=== PATIENT | female | born 1985 | race Hispanic/Latino ===

== ENCOUNTER 2017-10-27 09:15 | Emergency (ER) | payer OTHER ==
[~2017-10-27] VITALS: Ht 154.9 cm; Wt 112.9 kg
[~2017-10-27 09:15] MED LIST: LEVOTHYROXINE25 MCG PO; PANTOPRAZOLE SO20 M1 PO; ZITHROMAX250 M2 PO
--- NOTE | 2017-10-27 09:25 | ED NECK/BACK PAIN COMPLAINT ---
History of Present Illness General Chief Complaint: Low Back Pain/Injury Stated Complaint: LOW BACK PAIN Source: patient Exam Limitations: no limitations Vital Signs & Intake/Output Vital Signs & Intake/Output Vital Signs Date Time Temp Pulse Resp B/P B/P Pulse O2 O2 Flow FiO2 Mean Ox Delivery Rate 10/27 1153 98.8 85 16 126/79 99 Room Air 10/27 1042 Room Air 10/27 0919 98.3 88 18 131/79 98 Room Air Allergies Coded Allergies: epinephrine (UNKNOWN 10/27/17) Reconcile Medications Dicyclomine HCl 10 MG CAPSULE 1 CAP PO TID GI (Reported) Levothyroxine Sodium 25 MCG TABLET 1 TAB PO DAILY AC THYROID (Reported) Meloxicam 15 MG TABLET 1 TAB PO DAILY PAIN (Reported) Pantoprazole Sodium 20 MG TABLET.DR 1 TAB PO DAILY ACID REFLUX (Reported) Triage Note: 32 YO FEMALE TO TRIAGE C/O LOW BACK PAIN RADAITING DOWN BILATERAL LEGS SINCE YESTERDAY. STATES HX OF OA. STATES HAS BEEN SMOKING MARIJUANA FOR THE PAIN B/C SHE DOESNT LIKE TO TAKE MOTRIN/TYLENOL. Triage Nurses Notes Reviewed? yes Onset: Gradual Duration: day(s): Timing: recent history Quality/Severity: moderate Location: lumbar spine Radiation: buttocks Method of Injury: unknown LMP (ages 10-50): tubal ligation : No Patient currently breastfeeds: No HPI: Pt is a 32 yo obese F with an extensive PMH including chronic LBP, IBS, OA, ERIK, GERD, gastric ulcers, endometriosis, PCOS, hypothyroid, tubal ligation, who presents to the ED with a CC of increased intensity of lower back pain. Pt states she woke up with morning with new back pain in her lower back, with a feeling of tightness radiating to bilat buttocks and intermittent sharp pain radiating down her left leg. Pt states pain is exacerbated with certain ROM, especially bending forward. She has taken Ibuprofen with no relief, however, smoking marijuana alleviates the pain from 03/05 to 10/03. Pt denies fevers/chills , flank pain, vomiting, hematemesis, melena/hematochezia, dysuria, anorexia, numbness, urinary incontinence. She reports a longstanding hx of nausea and diarrhea/constipation. She denies any recent trauma or strenuous activities. She does report starting nightly CPAP 1 wk ago, for which she states she has had to change her sleeping position. Past History Travel History Traveled to [place] past 21 day No Medical History Any Pertinent Medical History? 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 No Review of Systems Review of Systems Constitutional: Reports: see HPI. Eyes: Denies: see HPI. Ears, Nose, Throat, Mouth: Denies: see HPI. Respiratory: Denies: see HPI. Cardiovascular: Denies: see HPI. Gastrointestinal/Abdominal: Denies: see HPI. Musculoskeletal: Reports: see HPI. Skin: Denies: see HPI. Neurological/Psychological: Reports: see HPI. All Other Systems: Reviewed and Negative Physical Exam Physical Exam General Appearance: no apparent distress, alert, awake, obese Head: atraumatic, normal appearance Eyes: Bilateral: normal appearance. Ears, Nose, Throat, Mouth: hearing grossly normal Neck: normal inspection, supple, full range of motion Respiratory: no respiratory distress Gastrointestinal: soft, non-tender, no organomegaly Back: decreased range of motion, Pt significantly tender to palpation of lumbar/ sacral spine, pain exacerbated with hip flexion/extension/twisting, no obvious deformities noted, no rashes noted. Extremities: normal range of motion Straight Leg Raising: Right: Negative. Left: Negative. Sensory: Medial Le: L4R, L4L. Top of Foot: 2: L5R, L5L. Sole of Foot: 2: SIR, LANA. DTR: Patellar: 2: L4 Right, L4 Left. Neurologic/Psych: awake, alert, oriented x 3, strength 5/5 equal bilateral lower extremities Skin: intact, normal color, warm/dry Core Measures CVA/TIA Diagnosis: No Progress Differential Diagnosis: cauda equina syn, herniated disc, myofascial strain, spinal cord inj, T/L spine injury Plan of Care: Patient's x-ray shows degenerative changes however no acute findings. Patient reports Tylenol and ibuprofen typically make her nauseous, she does not want any sedating medication. Patient also reports also relaxers have been unhelpful for her in the past. Patient declines pain medication. Patient to follow up with her primary care doctor for possible physical therapy and MRI. Patient also has appointments with rheumatology. The patient was given orthopedic referral for her low back pain. The patient ambulating here in the emergency Department without difficulty. No saddle anesthesia or urinary incontinence, low suspicion for cauda equina syndrome at this time. The patient agrees with the plan of care. Diagnostic Imaging: Viewed by Me: Radiology Read. Discussed w/RAD: Radiology Read. Radiology Impression: PATIENT: VERONICA MARTINES PRESENT AGE: 32 PATIENT ACCOUNT NO: [id number] : 83 LOCATION: [facility] ORDERING PHYSICIAN: Helen MARTINEZ SERVICE DATE: 10/27/17 EXAM TYPE: RAD - XRY-LUMBOSACRAL SPINE 4 VIEWS EXAMINATION: XR LUMBOSACRAL SPINE CLINICAL INFORMATION: Low back pain COMPARISON: None TECHNIQUE: 4 views of the lumbosacral spine were obtained. FINDINGS: There is anatomic alignment of the lumbar vertebral bodies and posterior elements. Vertebral body heights are maintained. No acute fracture is seen. Multilevel endplate osteophytes are present in the lumbar spine, most prominently at L1. There is mild disc space narrowing at L1-L2. The sacroiliac joints appear intact. IMPRESSION: No acute fracture identified. Mild disc space narrowing at L1-L2. Multilevel endplate osteophytes. DICTATED BY: Matthew Bran MD DATE/TIME DICTATED:10/27/171122 HOME VISIT[employer] START:OBDULIA DATE/TIME TRANSCRIBED:10/27/171122 CONFIDENTIAL, DO NOT COPY WITHOUT APPROPRIATE AUTHORIZATION. <Electronically signed in Other Vendor System> SIGNED BY: Matthew Bran MD 10/27/17 1130 Departure Departure Disposition: HOME OR SELF CARE Condition: Stable Clinical Impression Primary Impression: Back pain Qualifiers: Back pain location: low back pain Chronicity: acute Back pain laterality: midline Sciatica presence: without sciatica Qualified Code: M54.5 - Low back pain Referrals: Best PRIEST,Best (PCP/Family) Daniel PRIEST,Rafat Mckenzie Additional Instructions: For physical therapy please follow-up with your primary care doctor. Also keep your scheduled appointment with auto hauler. You were given a referral for an orthopedic doctor to consult given your low back pain. You may require an MRI in the future. Return to emergency Department with any worsening symptoms or concerns.. Please note that there might be incidental findings in your evaluation that are unrelated to the current emergency department visit. Please notify your primary care doctor about this emergency department visit in order to obtain and review all of the testing performed so that these incidental findings can be monitored as needed. If you had an x-ray performed, please understand that some fractures may not be seen on the initial set of x-rays. If your symptoms persist you might need a repeat set of x-rays to check for such a fracture. If you had a laceration evaluated, please understand that foreign bodies such as glass or wood may not be visible to the naked eye or on plain x-rays. If the wound becomes red, swollen, increasingly more painful or if there is any drainage from the wound, please have it reevaluated by a physician for the possibility of a retained foreign body. If you're unable to follow up as outlined in the discharge instructions please return to the emergency department. Thank you for choosing the [facility] Emergency Department for your care. It was a pleasure to serve you today. Departure Forms: Customer Survey General Discharge Information
[2017-10-27] MEDS ORDERED: DICYCLOMINE HCL10 M1 PO (10:05)
[2017-10-27] MEDS ORDERED: MELOXICAM15 M1 PO (10:05)
--- NOTE | 2017-10-27 11:30 | RADIOLOGY REPORT ---
EXAMINATION: XR LUMBOSACRAL SPINE CLINICAL INFORMATION: Low back pain COMPARISON: None TECHNIQUE: 4 views of the lumbosacral spine were obtained. FINDINGS: There is anatomic alignment of the lumbar vertebral bodies and posterior elements. Vertebral body heights are maintained. No acute fracture is seen. Multilevel endplate osteophytes are present in the lumbar spine, most prominently at L1. There is mild disc space narrowing at L1-L2. The sacroiliac joints appear intact. IMPRESSION: No acute fracture identified. Mild disc space narrowing at L1-L2. Multilevel endplate osteophytes.
[2017-10-27 11:53] VITALS: BP 126/79
== END 2017-10-27 11:54 ==
LOC: ERH 09:15
DX: M54.5 Low back pain (principal)
CPT/HCPCS: 72110